=== PATIENT | male | born 1995 | race Two or more races ===

== ENCOUNTER 2023-10-31 22:04 | Emergency (ER) | payer MEDICAID ==
[~2023-10-31] VITALS: Ht 188 cm; Wt 139.4 kg
[2023-10-31 22:41] LABS: Basophils # (auto) 0 10 ^3/uL (0-0.2); Basophils % (auto) 0.5 % (0.0-2.0); Eosinophils # (auto) 0.2 10 ^3/uL (0-0.8); Eosinophils % (auto) 2.6 % (0.0-7.0); Hematocrit 47.8 % (41.0-53.0); Hemoglobin 16.7 g/dL (13.5-17.5); Lymphocytes # (auto) 2.7 10 ^3/uL (0.4-5.4); Lymphocytes % (auto) 33.5 % (10.0-50.0); Mean Corpuscular Hemoglobin 31.3 pg (28.0-32.0); Mean Corpuscular Hgb Conc. 34.9 g/dL (32.0-36.0); Mean Corpuscular Volume 89.7 fL (80.0-100.0); Monocytes # (auto) 0.5 10 ^3/uL (0-1.3); Monocytes % (auto) 6.4 % (0.0-12.0); Neutrophils # (auto) 4.7 10 ^3/uL (1.6-8.6); Nucleated Red Blood Cells % 0.1 %; Red Blood Cells 5.33 10^6/uL (4.5-5.90); Red Cell Distribution Width 12.9 % (11.8-14.3); White Blood Cell 8.2 10^3/uL (4.4-10.8)
[2023-10-31 22:56] LABS: INR 1.02 (0.9-1.15); Partial Thromboplastin Time 27.3 SEC (24.5-34.5); Prothrombin Time 10.8 sec (9.3-11.8)
[2023-10-31 22:59] LABS: Alanine Aminotransferase 81 U/L (7-40); Albumin 4.2 g/dL (3.2-4.8); Alkaline Phosphatase 60 U/L (46-116); Anion Gap 7 (5-15); Blood Urea Nitrogen 9 mg/dL (9-23); Calcium 9.6 mg/dL (8.7-10.4); Carbon Dioxide 26 mmol/L (20-30); Chloride 106 mmol/L (98-107); Glucose 108 mg/dL (74-106); Potassium 3.6 mmol/L (3.5-5.1); Sodium 139 mmol/L (136-145)
[2023-10-31 23:00] LABS: Bilirubin, Total 0.4 mg/dL (0.2-1.0); Total Protein 6.9 g/dL (5.7-8.2)
[2023-10-31 23:21] LABS: Aspartate Aminotransferase 50 U/L (13-40)
[2023-10-31] MEDS: cloNIDine HCL 0.1 MG TAB PO ONE (23:54)
[2023-10-31] MEDS: KETOROLAC TROMETH 60MG/2ML VIAL IM ONE (23:54)
[2023-11-01 00:06] VITALS: PULSE 84; RESP 20; O2SAT 96
[2023-11-01] MEDS: cloNIDine HCL 0.1 MG TAB PO ONE (01:08)
[2023-11-01] MEDS ORDERED: LOSA-534 PO (03:46)
[2023-11-01] MEDS ORDERED: AMLO1TAB23 PO (03:46)
[2023-11-01 03:49] VITALS: BP 136/95; PULSE 69; RESP 20; TEMP 97.7; O2SAT 97
== END 2023-11-01 03:52 | disposition home or self-care (01) ==
LOC: ER 22:04
DX: R51.9 Headache, unspecified (principal); E66.9 Obesity, unspecified; Z68.39 Body mass index [BMI] 39.0-39.9, adult; Z86.2 Personal history of diseases of the blood and blood-forming organs and certain disorders involving the immune mechanism
CPT/HCPCS: 36415; 70450; 71045; 80053; 83880; 84484; 85025; 85610; 85730; 93005; 96372; 99285; J1885